=== PATIENT | male | born 1975 | race Caucasian/White ===

== ENCOUNTER 2016-07-26 13:54 | Emergency (ER) | payer MEDICAID ==
[~2016-07-26] VITALS: Wt 97.0 kg
[2016-07-26] MEDS ORDERED: IBUP-1542 PO (15:35)
[2016-07-26] MEDS ORDERED: D-ME473S18 PO (15:35)
[2016-07-26] MEDS ORDERED: AZIT250T94 PO (15:35)
--- NOTE | 2016-07-26 15:39 | ERD ---
ER Documentation Chief Complaint Date/Time DATE: 07/26/16 TIME: 15:37 Chief Complaint COUGH CONGESTION FOR THE PAST 2 WKS. NO SIGNS OF SOB NOTED. HPI This 41-year-old male presents with a cough just for the last 2 weeks directly sputum. Has shortness of breath, vomiting, abdominal pain, diarrhea. There is no measured fevers. Is here with his children also have URI symptoms and fever. ROS All systems reviewed and are negative except as per history of present illness. Medications Home Meds Active Scripts Dextromethorphan Hb-Promethazine Hcl (Promethazine DM Syrup) 473 Ml Syrup, 5 ML PO Q6H Y for COUGH, #4 OZ Prov:SHERRI CARTY MD 07/26/16 Ibuprofen* (Motrin*) 600 Mg Tab, 600 MG PO Q6, #15 TAB Prov:SHERRI CARTY MD 07/26/16 Azithromycin* (Zithromax*) 250 Mg Tablet, 250 MG PO .ZPACK DIRECTED, #6 TAB TAKE 500 MG (2 TABS) THE FIRST DAY THEN 250 MG (1 TAB) DAYS 2-5 Prov:SHERRI CARTY MD 07/26/16 PMhx/Soc History of Surgery: No Anesthesia Reaction: No Hx Neurological Disorder: No Hx Respiratory Disorders: No Hx Cardiac Disorders: No Hx Psychiatric Problems: No Hx Miscellaneous Medical Probl: No Hx Alcohol Use: No Hx Substance Use: No Hx Tobacco Use: No Smoking Status: Never smoker Physical Exam Vitals Vital Signs Date Time Temp Pulse Resp B/P Pulse Ox O2 Delivery O2 Flow Rate FiO2 07/26/16 13:57 98.9 88 22 147/87 96 Physical Exam Const: [] Alert, not ill-appearing. Head: Atraumatic Eyes: Normal Conjunctiva ENT: Normal External Ears, Nose and Mouth. Neck: Full range of motion..~ No meningismus. Resp: Clear to auscultation bilaterally. Coarse cough without Rales or retractions appreciated. Cardio: Regular rate and rhythm, no murmurs Abd: Soft, non tender, non distended. Normal bowel sounds Skin: No petechiae or rashes Back: No midline or flank tenderness Ext: No cyanosis, or edema Neur: Awake and alert Psych: Normal Mood and Affect Procedures/MDM Patient presents with URI symptoms. Cough for last 2 weeks. There is no signs of pneumonia, respiratory distress, hypoxemia, acute abdomen. Signs or symptoms are not consistent with pulmonary and wasn't, acute cornea syndrome. He will treated with promethazine, Zithromax and ibuprofen and observation home.The patient was stable with no new complaints during the ER course. Clinically, there is no current evidence to suggest meningitis, sepsis, acute abdomen, pneumonia, acute coronary syndrome, pulmonary embolism, or any other emergent condition appearing to require further evaluation or hospitalization. The patient should certainly return for any new or worsening symptoms per the aftercare instructions. They should otherwise follow-up with her primary care doctor for reevaluation this week. Departure Diagnosis: Primary Impression: Bronchitis Condition: Stable Patient Instructions: Acute Bronchitis Additional Instructions: Cheque otro vez con monge doctor primario en el proximo lyles or regresa para mas o nueva simptomas. SHERRI CARTY MD Jul 26, 2016 15:39
== END 2016-07-26 15:53 | disposition home or self-care (01) ==
LOC: FTE 13:54
DX: J20.9 Acute bronchitis, unspecified (principal)
CPT/HCPCS: 99284